=== PATIENT | male | born 1955 | race Hispanic/Latino ===

== ENCOUNTER 2018-11-07 06:27 | Day surgery (SDC) | payer OTHER ==
[2018-11-07] MEDS ORDERED: VERSED IV NR (07:08)
[2018-11-07] MEDS ORDERED: NACL 0.9% 1000 ML 1,000 ML IV SCH (07:09)
[2018-11-07] MEDS ORDERED: PEPCID IV NR (07:09)
[2018-11-07] MEDS ORDERED: NACL BACTERIOSTATIC INFILTRATI ONE (07:15)
[2018-11-07] MEDS ORDERED: DIPRIVAN 10 MG/ML IV ONE ×2 (07:35→08:21)
[2018-11-07] MEDS ORDERED: SUBLIMAZE ONE ×2 (07:35→09:57)
[2018-11-07] MEDS ORDERED: NEO SYNEPHRINE/NS Syringe(OR USE) IV ONE (07:45)
[2018-11-07] MEDS ORDERED: ZOFRAN ONE (07:45)
[2018-11-07] MEDS ORDERED: DECADRON ONE (07:45)
[2018-11-07] MEDS ORDERED: XYLOCAINE MPF 2% ONE (07:45)
[2018-11-07] MEDS ORDERED: ROBINUL ONE (07:45)
--- NOTE | 2018-11-07 07:54 | Anesthesia Day of Surgery ---
Anesthesia Day of Surgery - Day of Surgery Patient Examined: Yes Patient H&P Reviewed: Yes Patient is NPO: Yes
[2018-11-07] MEDS ORDERED: ZOFRAN IV PRN (07:55)
[2018-11-07] MEDS ORDERED: SUBLIMAZE IV PRN (07:55)
--- NOTE | 2018-11-07 07:55 | Anesthesia Consultation ---
Anesthesia Consult and Med Hx Date of service: 11/07/18 - Airway Anesthetic Teeth Evaluation: Good ROM Head & Neck: Adequate Mental/Hyoid Distance: Adequate Mallampati Class: Class II Intubation Access Assessment: Good - Pre-Operative Health Status ASA Pre-Surgery Classification: ASA2 Proposed Anesthetic Plan: General - Pulmonary Hx Smoking: Yes (STOPPED 2008 , NOW VAPS) COPD: Yes (PER CXR) Hx Sleep Apnea: No (CONCEPCION PRE SCREEN HIGH RISK.) - Cardiovascular System Hx Hypertension: Yes (X 2 YRS) Hx Heart Attack/AMI: No Hx Cardia Arrhythmia: Yes (RBBB on EKG) - Central Nervous System Hx Neuromuscular Disorder: No Hx Psychiatric Problems: No - Gastrointestinal Hx Gastroesophageal Reflux Disease: No - Endocrine Hx Renal Disease: No Hx Liver Disease: No - Hematic Hx Anemia: No - Other Systems Hx Alcohol Use: Yes (OCC MARIJUANA) Hx Substance Use: Yes (THC) Hx Cancer: No
[2018-11-07] MEDS ORDERED: NACL 0.9% 1000 ML IR ONE (08:38)
[2018-11-07] MEDS ORDERED: NACL 0.9% IR ONE (08:38)
[2018-11-07] MEDS ORDERED: WATER FOR IRRIG STERILE IR ONE (08:38)
[2018-11-07] MEDS ORDERED: ANCEF/STERILE WATER 2 GM/20 ML IV NR (10:00)
--- NOTE | 2018-11-07 10:41 | Post Operative Note ---
Date of procedure: 11/07/18 Pre-op diagnosis: l spermatocele bladder tumor Post-op diagnosis: same Findings: as above plus r hydrocele Procedure: cysto turbt biopsies r spermatocectomy Anesthesia: GETA Surgeon: GLENNY SIGALA Estimated blood loss: minimal Pathology: list (bt biopsies spermatocele) Specimen disposition: to lab Condition: stable Disposition: PACU
--- NOTE | 2018-11-07 10:46 | Discharge Summary ---
Short Stay Discharge Plan Activity: other (no lifting or straing ) Weight Bearing Status: Full Weight Bearing Diet: low fat Wound: open to air (ice in rr ) Special Instructions: other (ice in rr raysa ) Durable Medical Equipment Needed Upon Discharge: other (plata care ) Follow up with: PERLITA SCANLON MD [Primary Care Provider] - 7 Days GLENNY SIGALA MD [Staff Physician] - 7 Days
[2018-11-07] MEDS ORDERED: HumaLOG SUB-Q STA (11:10)
[2018-11-07] MEDS ORDERED: HumaLOG SUB-Q ONE (11:23)
--- NOTE | 2018-11-07 12:26 | Operative Report ---
PREOPERATIVE DIAGNOSES: Bilateral scrotal masses and bladder tumor POSTOPERATIVE DIAGNOSES: Bilateral scrotal masses and bladder tumor. PROCEDURE: Cystoscopy, transurethral resection of bladder tumor, biopsy of the prostatic urethra transurethrally and left scrotal exploration with excision of large left spermatocele, which was quite symptomatic. SURGEON: Fantasma Hogue MD ANESTHESIA: General. FINDINGS: This is a gentleman, who had cystoscopy and returned hematuria, found to have a bladder tumor towards the dome on the left side difficult position. He is about 250-260 pounds as well. He has a very large right hydrocele with a very large left spermatocele, which is more symptomatic and he asked if we could do at least the left side at the same time. DESCRIPTION OF PROCEDURE: The patient was brought to the operating room and placed on the operating table. Following induction of anesthesia, placed in lithotomy position, prepped and draped in usual sterile fashion. Cystourethroscopy showed this tumor, which was quite difficult to get under visualization, so we had to use the camera when some pressure anteriorly. The tumor was resected. Transurethral biopsy at the prostatic urethra was carried out as well. The patient tolerated the procedure well. We did not repeat the retrogrades. At this point, there was good hemostasis. There was a little fat seen, so we elected not to do intravesical chemo in the recovery room. Loera drip was clear. We brought him into the open room and a left spermatocelectomy was done. He was reprepped and draped in the usual sterile fashion. Catheter was well away from the operative field. An oblique incision was carried down through the scrotal fascia. This carried down to the tunica vaginalis, which was opened. There was at least a 4-5 cm large right spermatocele. This was dissected free of the surrounding fascial layers and small vessels were cauterized and tied with 3-0 Vicryl. Hemostasis was excellent. The patient tolerated the procedure well. Wound was irrigated. This was excised intact and sent to pathology. The fascia was approximated with 3-0 chromic, skin with 2-0 chromic with a 0.5 inch [place]way [place] brought out in the dependent portion of the scrotum. The patient tolerated the procedure well. We will have to come back for the right side, which I explained to him. I think it would be too much to do more surgery at this time. He was brought to recovery room in stable condition. We will hold off an intravesical therapy. There was no large perforation, but it was anterior and at the level of the dome and I did not want any complications with intravesical chemo in the recovery room. JOB# [id number] MARE/NTS
[2018-11-07 15:13] VITALS: BP 161/85
== END 2018-11-07 06:28 | disposition home or self-care (01) ==
LOC: OR 06:27
PROVIDERS: ATTEND Urology
DX: C67.4 Malignant neoplasm of posterior wall of bladder (principal); I42.9 Cardiomyopathy, unspecified; J44.9 Chronic obstructive pulmonary disease, unspecified; E11.9 Type 2 diabetes mellitus without complications; Z98.890 Other specified postprocedural states; Z79.899 Other long term (current) drug therapy; Z72.89 Other problems related to lifestyle; Z79.84 Long term (current) use of oral hypoglycemic drugs; Z87.891 Personal history of nicotine dependence; Z87.440 Personal history of urinary (tract) infections; Z98.49 Cataract extraction status, unspecified eye; Z88.8 Allergy status to other drugs, medicaments and biological substances
CPT/HCPCS: 52204; 52234; 54840; 82962; 88304; 88305; A4217; J1100; J2250; J2370; J2405; J2704; J3010; J7030; J1815

== ENCOUNTER 2020-06-17 06:31 | Day surgery (SDC) | payer OTHER ==
[~2020-06-17 06:31] MED LIST: LACTATED RINGERS 1,000 ML IV SCH; MIDAZOLAM 2 MG/2 ML INJ IV NR
[2020-06-17] MEDS ORDERED: fentaNYL 100 MCG/2 ML INJ IV PRN (07:40)
--- NOTE | 2020-06-17 07:40 | Anesthesia Day of Surgery ---
Anesthesia Day of Surgery - Day of Surgery Patient Examined: Yes Patient H&P Reviewed: Yes Patient is NPO: Yes
--- NOTE | 2020-06-17 07:40 | Anesthesia Consultation ---
Anesthesia Consult and Med Hx Date of service: 06/17/20 - Airway Anesthetic Teeth Evaluation: Poor ROM Head & Neck: Adequate Mental/Hyoid Distance: Adequate Mallampati Class: Class III Intubation Access Assessment: Possibly Difficult - Pulmonary Exam CTA: Yes - Cardiac Exam Cardiac Exam: RRR - Pre-Operative Health Status ASA Pre-Surgery Classification: ASA3 Proposed Anesthetic Plan: General - Pulmonary Hx Smoking: Yes (STOPPED X 8 YRS , NOW VAPES) Hx Respiratory Symptoms: No COPD: Yes (PER CXR / NO TX) Hx Sleep Apnea: No (CONCEPCION PRE SCREEN HIGH RISK.) - Cardiovascular System Hx Hypertension: Yes Hx Heart Attack/AMI: No Hx Cardia Arrhythmia: Yes (RBBB on EKG per chart review) - Central Nervous System CVA: No Hx Back Pain: Yes - Gastrointestinal Hx Gastroesophageal Reflux Disease: No - Endocrine Hx Renal Disease: No Hx Liver Disease: No Hx Non-Insulin Dependent Diabetes: Yes Hx Thyroid Disease: No - Other Systems Hx Substance Use: Yes (THC) Hx Cancer: Yes (bladder ca) - Additional Comments Anesthesia Medical History Comments: No hx anesthetic complications.
[2020-06-17] MEDS ORDERED: ceFAZolin/STERILE WATER 2 GM/20 ML SYRINGE IV NR (08:00)
[2020-06-17] MEDS ORDERED: ONDANSETRON 4 MG/2 ML INJ ONE (09:06)
[2020-06-17] MEDS ORDERED: dexAMETHasone 20 MG/5 ML VIAL ONE (09:06)
[2020-06-17] MEDS ORDERED: LIDOCAINE MPF (2%) 20 MG/1 ML VIAL 5 ML ONE (09:06)
[2020-06-17] MEDS ORDERED: fentaNYL 100 MCG/2 ML INJ ONE (09:07)
[2020-06-17] MEDS ORDERED: propofoL 200 MG/20 ML VIAL IV ONE (09:07)
[2020-06-17] MEDS ORDERED: LIDOCAINE (1%) 10 MG/1 ML VIAL 20 ML MDV ONE (09:12)
[2020-06-17] MEDS ORDERED: BUPIVACAINE/PF (0.25%) 2.5 MG/ML 30 ML VIAL INFILTRATI ONE (09:12)
[2020-06-17] MEDS ORDERED: SODIUM CHLORIDE 0.9% IRR 1,500 ML BOTTLE IR ONE (10:15)
[2020-06-17] MEDS ORDERED: HYDROmorphone 1 MG/1 ML INJ ONE (10:17)
[2020-06-17] MEDS ORDERED: LACTATED RINGERS 1,000 ML ONE (10:52)
--- NOTE | 2020-06-17 12:29 | Post Operative Note ---
Date of procedure: 06/17/20 Pre-op diagnosis: r hydrocele h/o tcc Post-op diagnosis: same Findings: huge hydrocle Procedure: r hydrocelectomy excision epidi cystas Anesthesia: GETA Surgeon: GLENNY SIGALA Pathology: list (sac epidid cysts) Specimen disposition: to lab Condition: stable Disposition: PACU
--- NOTE | 2020-06-17 12:32 | Discharge Summary ---
Short Stay Discharge Plan Activity: other (no straining ) Weight Bearing Status: Full Weight Bearing Diet: low fat, low cholesterol, low salt Wound: open to air, change dressing Special Instructions: other (has drain ) Durable Medical Equipment Needed Upon Discharge: other (needs 4 x4 's ) Additional Instructions: APPOINTMENT - DR SIGALA WANTS TO SEE YOU IN 7 DAYS CALL FOR APPOINTMENT AND FRO ANY QUESTIONS OR CONCERNS RELATED TO YOUR PROCEDURE. DIET - LOW FAT, LOW SALT, LOW CHOLESTEROL Follow up with: PERLITA SCANLON MD [Primary Care Provider] - 7 Days GLENNY SIGALA MD [Staff Physician] - 06/19/20 Forms: Outpatient Surgery DC Inst.
--- NOTE | 2020-06-17 12:57 | Operative Report ---
PREOPERATIVE DIAGNOSIS: Huge right hydrocele. POSTOPERATIVE DIAGNOSIS: Huge right hydrocele. PROCEDURE: Right hydrocelectomy. SURGEON: Dr. Hogue. ANESTHESIA: General. FINDINGS: This is a gentleman with over a liter of fluid in the right hemiscrotum. He also has a history of bladder cancer with two abnormal cells. He was scheduled for cystoscopy as well, but he canceled it because he is self-pay and they want to discharge him in another ____. He needs to followup cystoscopy. I told him in no uncertain terms, he needs this taken care of. He needs to get insurance. DESCRIPTION OF PROCEDURE: The patient was brought to the operative room and placed on the operating table. Following induction of anesthesia, placed in supine position, prepped and draped in usual sterile fashion. This huge mass was at least 15 cm big. Incision was made, carried through multiple layers of the scrotum, carried down to the tunica. This was isolated and delivered. Over approximately 1100 mL of clear fluid was obtained. Large amount of excess tissue and there was cyst around the epididymis, which were excised. These were oversewn. Large amount of the sac was excised and oversewn with 3-0 chromic. The patient tolerated the procedure well. Superficial fascia was approximated with 3-0 chromic after a 1 inch drain was placed in the dependent portion of the scrotum. Skin was closed with interrupted chromic. The patient tolerated the procedure well. No significant complications. He was brought to recovery room, minimal blood loss in stable condition. JOB# [id number] MARE/ARISTEO
[2020-06-17 13:09] VITALS: BP 162/89
--- NOTE | 2020-06-17 13:51 | Post Anesthesia Evaluation ---
- Post Anesthesia Evaluation Patient Participated: Yes Airway Patent: Yes Stable Respiratory Function: Yes Nausea/Vomiting: No Temp > 96.8F: Yes Pain Manageable: Yes Adequeate Hydration: Yes Anesthesia Complications: No
== END 2020-06-17 06:32 | disposition home or self-care (01) ==
LOC: OR 06:31
PROVIDERS: ATTEND Urology
DX: N43.2 Other hydrocele (principal); I10 Essential (primary) hypertension; I42.9 Cardiomyopathy, unspecified; J44.9 Chronic obstructive pulmonary disease, unspecified; M19.90 Unspecified osteoarthritis, unspecified site; E11.9 Type 2 diabetes mellitus without complications; Z88.8 Allergy status to other drugs, medicaments and biological substances; Z79.899 Other long term (current) drug therapy; Z79.84 Long term (current) use of oral hypoglycemic drugs; Z87.891 Personal history of nicotine dependence; Z87.440 Personal history of urinary (tract) infections; Z98.49 Cataract extraction status, unspecified eye; Z98.890 Other specified postprocedural states; Z85.51 Personal history of malignant neoplasm of bladder
CPT/HCPCS: 55040; 82962; 88302; J1100; J1170; J2250; J2405; J2704; J3010; J7120